=== PATIENT | male | born 1965 | race Caucasian/White ===

== ENCOUNTER 2018-04-08 03:38 | Emergency (ER) | payer MEDICARE ==
[~2018-04-08] VITALS: Ht 172.7 cm; Wt 71.0 kg
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
[2018-04-08] MEDS ORDERED: IPRATRPIUM/ALBUTEROL 0.5/2.5MG 3 ML NEBU. ONE (03:57)
[2018-04-08] MEDS ORDERED: HEPARIN for IV BOLUS 10,000 UNIT/10 ML VIAL. IV ONE (04:00)
[2018-04-08] MEDS ORDERED: HEPARIN 25,000UTS/500ML PREMIX 500 ML IV PRN (04:00)
[2018-04-08] MEDS ORDERED: NITROGLYCERIN OINT 1 GM PACKET. TP ONE (04:00)
[2018-04-08] MEDS ORDERED: ASPIRIN 325 MG TABLET PO ONE (04:00)
[2018-04-08] MEDS ORDERED: MORPHINE SULFATE 10 MG/ML SYRINGE. SQ ONE (04:00)
[2018-04-08 04:03] LABS: BASO # 0.1 x10^3/uL (0.0-0.2); BASO % 1 % (0-3); EOS # 0.1 x10^3/uL (0.0-0.7); EOS % 2 % (0-3); HEMATOCRIT 28.1 % (39.0-53.0); HEMOGLOBIN 9.5 g/dL (13.0-17.5); LYMPH # 0.9 x10^3/uL (1.0-4.8); LYMPH % 13 % (24-48); MEAN CORPUSCULAR HEMOGLOBIN 34 pg (25-35); MEAN CORPUSCULAR HGB CONC 34 g/dL (31-37); MEAN CORPUSCULAR VOLUME 99 fL (79-100); MONO # 0.6 x10^3/uL (0.0-1.1); MONO % 9 % (0-9); NEUT # 4.9 x10^3uL (1.8-7.7); NEUT % 75 % (31-73); PLATELET COUNT 166 x10^3/uL (140-400); RED BLOOD COUNT 2.83 x10^6/uL (4.30-5.70); RED CELL DISTRIBUTION WIDTH 15.1 % (11.5-14.5); WHITE BLOOD COUNT 6.6 x10^3/uL (4.0-11.0)
[2018-04-08 04:14] LABS: BARBITURATES NEG (NEG); BENZODIAZEPINES POS (NEG); CANNABINOIDS NEG (NEG); COCAINE NEG (NEG); METHADONE NEG (NEG); OPIATES NEG (NEG); PHENCYCLIDINE NEG (NEG)
[2018-04-08 04:15] LABS: AMPHETAMINE/METHAMPHETAMINE NEG (NEG)
[2018-04-08] MEDS ORDERED: IPRATRPIUM/ALBUTEROL 0.5/2.5MG 3 ML NEBU. NEB ONE ×2 (04:15→04:45)
[2018-04-08 04:17] LABS: CLARITY,URINE CLEAR; COLOR,URINE YELLOW
[2018-04-08 04:18] LABS: BACTERIA,URINE FEW /HPF (0-FEW); BILIRUBIN,URINE NEG (NEG); GLUCOSE,URINE 500 mg/dL (NEG); NITRITE,URINE NEG (NEG); SQUAMOUS EPITHELIAL CELL,UR FEW /LPF; UROBILINOGEN,URINE 0.2 mg/dL (0.2 mg/dL); WBC,URINE OCC /HPF (0-4)
[2018-04-08 04:29] LABS: ALBUMIN 4.1 g/dL (3.4-5.0); CALCIUM 8.2 mg/dL (8.5-10.1); CREATININE 7.2 mg/dL (0.7-1.3); DIRECT BILIRUBIN 0.2 mg/dL (0.0-0.2); TOTAL BILIRUBIN 0.5 mg/dL (0.2-1.0); TOTAL PROTEIN 7.2 g/dL (6.4-8.2)
[2018-04-08] MEDS ORDERED: LIDOCAINE 1% Multi-Dose 20 ML VIAL. ONE (04:43)
--- NOTE | 2018-04-08 04:43 | RAD ---
EXAM: CHEST 1 VIEW History: Chest pain, shortness of breath COMPARISON: None available. TECHNIQUE: Single portable radiograph of the chest FINDINGS: Mild cardiomegaly. Mild diffuse prominent appearing bilateral interstitial lung markings likely mild congestive changes IMPRESSION: 1. Mild lung congestive changes. Electronically signed by: Ethan Marin MD (04/08/2018 4:38 AM) [id number]
[2018-04-08 04:57] VITALS: BP 177/83
[2018-04-08] MEDS ORDERED: FUROSEMIDE 40 MG/4 ML VIAL ONE (04:58)
[2018-04-08] MEDS ORDERED: FUROSEMIDE 40 MG/4 ML VIAL IVP ONE (05:00)
[2018-04-08 13:57] LABS: THYROID STIM HORMONE (TSH) 3.427 uIU/mL (0.358-3.740)
--- NOTE | 2018-04-08 15:56 | EKG ---
[address] [address] Test Date: 2018-04-08 Test Time: 03:43:06 Pat Name: JENNIFER BRANDON Department: Room: Gender: M [employer]: : [id number] Requested By: RODY IRWIN Order Number: [id number] Reading MD: Measurements Intervals [place] Rate: 98 P: 90 SD: 194 QRS: 38 QRSD: 80 T: 51 QT: 366 QTc: 469 Interpretive Statements SINUS RHYTHM NORMAL ECG RI6.01 No previous ECG available for comparison
== END 2018-04-08 05:24 | disposition short-term general hospital (02) ==
LOC: ER 03:38
DX: R07.89 Other chest pain (principal); J44.9 Chronic obstructive pulmonary disease, unspecified; E11.22 Type 2 diabetes mellitus with diabetic chronic kidney disease; I13.2 Hypertensive heart and chronic kidney disease with heart failure and with stage 5 chronic kidney disease, or end stage renal disease; I50.9 Heart failure, unspecified; N18.6 End stage renal disease; I25.2 Old myocardial infarction; R79.89 Other specified abnormal findings of blood chemistry; M19.90 Unspecified osteoarthritis, unspecified site; F17.210 Nicotine dependence, cigarettes, uncomplicated; Z99.2 Dependence on renal dialysis; Z86.73 Personal history of transient ischemic attack (TIA), and cerebral infarction without residual deficits; Z88.8 Allergy status to other drugs, medicaments and biological substances
CPT/HCPCS: 36415; 71045; 80048; 80061; 80076; 80307; 81001; 82550; 83690; 83735; 83880; 84443; 84484; 85025; 85610; 85730; 93005; 94640; 96365; 96372; 96375; 96376; 99285; J1644; J1940; J2270; J7620

== ENCOUNTER 2019-04-03 10:57 | Emergency (ER) | payer MEDICARE ==
[~2019-04-03] VITALS: Ht 172.7 cm; Wt 62.6 kg
[2019-04-03] MEDS ORDERED: IV NORMAL SALINE 1,000ML 1,000 ML IV ONE (11:00)
[2019-04-03] MEDS ORDERED: INSULIN REGULAR VIAL 100 UNIT in IV NORMAL SALINE 100ML 100 ML IV PRN (11:00)
[2019-04-03] MEDS ORDERED: DEXTROSE 50% 25 GM / 50ML DISP.SYRIN. IV PRN (11:00)
--- NOTE | 2019-04-03 11:29 | PHYS DOC ---
Past History Past Medical History: Arthritis, CAD, COPD, CVA, Diabetes, High Cholesterol, Heart Disease, Hypertension, ME, Renal Failure, Stroke Past Surgical History: Other Additional Past Surgical Histo: DIALYSIS SHUNT LEFT ARM Smoking: Cigarettes Alcohol Use: None Drug Use: None Adult General Chief Complaint Chief Complaint: BLOOD SUGAR PROBLEM HPI HPI 53-year-old male presents via EMS with hyperglycemia and altered mental status. The patient's relatives who lives out of state was talking to him on the phone and thought that he sounded unusual. EMS found the patient on the couch and the patient admits to sitting there for 3 days. He had urine and feces on him. His initial blood sugar was well over 400. He was alert to himself only at first. He is becoming more alert during transport. Patient denies any falls. He denies drinking alcohol though his family is concerned he has been drinking. The patient is a long-standing diabetic. He is on dialysis. He says that he used peritoneal dialysis last night. He does not have any additional specific complaints. He denies any falls or trauma. Review of Systems Review of Systems Constitutional: Denies fever or chills [] Eyes: Denies change in visual acuity, redness, or eye pain [] HENT: Denies nasal congestion or sore throat [] Respiratory: Denies cough or shortness of breath [] Cardiovascular: No additional information not addressed in HPI [] GI: Denies abdominal pain, nausea, vomiting, bloody stools or diarrhea [] : Denies dysuria or hematuria [] Musculoskeletal: Denies back pain or joint pain [] Integument: Denies rash or skin lesions [] Neurologic: Denies headache, focal weakness or sensory changes [] Endocrine: Denies polyuria or polydipsia [] All other systems were reviewed and found to be within normal limits, except as documented in this note. Current Medications Current Medications Current Medications Medications (Trade) Dose Ordered Sig/Matthew Start Time Stop Time Status Last Admin Dose Admin Dextrose (Dextrose 50%-Water Syringe) 12.5 gm PRN Q15MIN PRN 04/03/19 11:00 Insulin Human Regular 100 unit/ Sodium Chloride 101 ml @ 0 mls/hr CONT PRN 04/03/19 11:00 Sodium Chloride 1,000 ml @ 1,000 mls/hr 1X ONCE 04/03/19 11:00 04/03/19 11:59 Allergies Allergies Allergies Coded Allergies Type Severity Reaction Last Updated Verified lamotrigine Allergy Unknown 04/08/18 Yes Physical Exam Physical Exam Constitutional: Well developed, unkempt, no acute distress, pale, dry skin. [] HENT: Normocephalic, atraumatic, bilateral external ears normal, oropharynx moist, no oral exudates, nose normal. [] Eyes: PERRLA, EOMI, conjunctiva normal, no discharge. [] Neck: Normal range of motion, no tenderness, supple, no stridor. [] Cardiovascular: Heart rate regular rhythm, no murmur [] Lungs & Thorax: Bilateral breath sounds clear to auscultation [] Abdomen: Peritoneal dialysis catheter in place. Bowel sounds normal, soft, no tenderness, no masses, no pulsatile masses. [] Skin: Pale, dry[] Back: No tenderness, no CVA tenderness. [] Extremities: No tenderness, no cyanosis, no clubbing, ROM intact, no edema. [] Neurologic: Alert and oriented X 3, normal motor function, normal sensory function, no focal deficits noted. [] Psychologic: Affect normal, judgement normal, mood normal. [] Current Patient Data Vital Signs Vital Signs Date Time Temp Pulse Resp B/P (MAP) Pulse Ox O2 Delivery O2 Flow Rate FiO2 04/03/19 11:00 96.7 100 20 95 Room Air EKG EKG [] Radiology/Procedures Radiology/Procedures [] Course & Med Decision Making Course & Med Decision Making Pertinent Labs and Imaging studies reviewed. (See chart for details) The patient has several abnormal labs. See labs for more details. His BUN is elevated, his creatinine is elevated, his anion gap is 22. His blood sugar was 484. I'll give the patient liter normal saline started him on insulin drip. His lactic acid is 2.8. His vitals have been acceptable and stable. He is not hypotensive. In no way of confirming whether or not the patient is doing his dialysis as he is supposed to. He definitely meets criteria to be admitted to the hospital. I spoke with Dr. Peace at [facility] and he has accepted the patient for transfer and admission. 39 minutes critical care time was spent on this patient exclusive of other billable procedures. [] Dragon Disclaimer Dragon Disclaimer This electronic medical record was generated, in whole or in part, using a voice recognition dictation system. Departure Departure: Impression: Primary Impression: DKA, type 2 Additional Impressions: Elevated alkaline phosphatase level Kidney failure Lactic acidosis due to diabetes mellitus Disposition: SHT-TRM HOSP Condition: GUARDED Referrals: PCP,NO (PCP) Problem Qualifiers Primary Impression: DKA, type 2 Diabetes mellitus senior living insulin use: with senior living use Diabetes mellitus complication detail: without coma Qualified Codes: E11.10 - Type 2 diabetes mellitus with ketoacidosis without coma; Z79.4 - salvage determiner (current) use of insulin Additional Impressions: Kidney failure Renal failure chronicity: chronic Chronic kidney disease stage: on chronic dialysis Qualified Codes: N18.6 - End stage renal disease; Z99.2 - Dependence on renal dialysis SHANKAR WHITAKER DO Apr 03, 2019 11:29
[2019-04-03 11:41] LABS: CALCIUM 8.5 mg/dL (8.5-10.1); CREATININE 9.5 mg/dL (0.7-1.3); GFR 5.8; POTASSIUM 4.5 mmol/L (3.5-5.1)
[2019-04-03 11:55] LABS: ALBUMIN 1.2 g/dL (3.4-5.0); ALBUMIN/GLOBULIN RATIO 0.3 (1.0-1.7); TOTAL BILIRUBIN 0.3 mg/dL (0.2-1.0)
[2019-04-03 11:57] LABS: BASO % 0 % (0-3); EOS % 0 % (0-3); HEMATOCRIT 32.1 % (39.0-53.0); HEMOGLOBIN 9.4 g/dL (13.0-17.5); LYMPH % 8 % (24-48); MEAN CORPUSCULAR HEMOGLOBIN 29 pg (25-35); MEAN CORPUSCULAR HGB CONC 29 g/dL (31-37); MEAN CORPUSCULAR VOLUME 100 fL (79-100); MONO # 0.5 x10^3/uL (0.0-1.1); MONO % 4 % (0-9); NEUT # 11.4 x10^3uL (1.8-7.7); NEUT % 88 % (31-73); PLATELET COUNT 400 x10^3/uL (140-400); RED BLOOD COUNT 3.21 x10^6/uL (4.30-5.70); RED CELL DISTRIBUTION WIDTH 18.4 % (11.5-14.5)
--- NOTE | 2019-04-03 12:27 | RAD ---
CHEST AP ONLY 04/03/2019 11:41 AM INDICATION: Cough COMPARISON: 04/08/2018 TECHNIQUE: Portable frontal view of the chest is provided. FINDINGS: The cardiomediastinal silhouette is similar in appearance. Improved aeration of lungs compared to prior examination. Patchy nodular opacities noted in the right perihilar distribution centered between the posterior seventh and eighth ribs. There are no significant pleural effusions. There is no pulmonary vascular congestion. No pneumothorax. IMPRESSION: There is improved aeration of lungs compared to prior examination although there is a residual patchy nodular airspace opacity in the right midlung. Further evaluation with CT chest could be of benefit. Electronically signed by: Nataly Daley MD (04/03/2019 12:25 PM) [id number]
[2019-04-03 14:00] VITALS: BP 149/98
== END 2019-04-03 14:50 | disposition short-term general hospital (02) ==
LOC: ER 10:57
DX: E11.10 Type 2 diabetes mellitus with ketoacidosis without coma (principal); I13.11 Hypertensive heart and chronic kidney disease without heart failure, with stage 5 chronic kidney disease, or end stage renal disease; N18.6 End stage renal disease; R74.8 Abnormal levels of other serum enzymes; E87.2 Acidosis; M19.90 Unspecified osteoarthritis, unspecified site; I25.10 Atherosclerotic heart disease of native coronary artery without angina pectoris; J44.9 Chronic obstructive pulmonary disease, unspecified; E78.00 Pure hypercholesterolemia, unspecified; I25.2 Old myocardial infarction; F17.210 Nicotine dependence, cigarettes, uncomplicated; Z86.73 Personal history of transient ischemic attack (TIA), and cerebral infarction without residual deficits; Z99.2 Dependence on renal dialysis; Z79.4 Long term (current) use of insulin; Z88.8 Allergy status to other drugs, medicaments and biological substances
CPT/HCPCS: 36415; 71045; 80053; 82947; 83605; 85025; 87040; 96374; 99285; G0480; J1815; 99291-25; J7030